=== PATIENT | female | born 1975 ===

== ENCOUNTER → 2021-01-27 | Day surgery (SDC) | payer OTHER ==
[~2021-01-27] MED LIST: DORYX100 MG PO; MORGIDOX100 MG PO; NAPR500T14 PO; NASAL MIST126 ML NASAL
== END | disposition home or self-care (01) ==
LOC: ADM 01-21 09:15 → CIR.AMB 07:00
PROVIDERS: ATTEND Obstetrics & Gynecology
DX: D25.0 Submucous leiomyoma of uterus (principal); N84.0 Polyp of corpus uteri; Z20.822 Contact with and (suspected) exposure to COVID-19